=== PATIENT | male | born 1945 | race Caucasian/White ===

== ENCOUNTER 2018-07-24 20:45 | Emergency (ER) | payer MEDICARE ==
[~2018-07-24] VITALS: Ht 175.3 cm; Wt 85.0 kg
[2018-07-24] MEDS ORDERED: dextrose 50%-water 50ml dispensing syringe IV STA (20:56)
[2018-07-24] MEDS ORDERED: dexamethasone sod phosphate 10mg/ml inj IV STA (20:58)
[2018-07-24] MEDS ORDERED: dextrose 50%-water 50ml dispensing syringe IV ONE ×2 (20:58→21:00)
[2018-07-24] MEDS ORDERED: normal saline 1000ML IV soln IVB ONE (21:00)
--- NOTE | 2018-07-24 21:02 | NUR ---
Apparently he had a low glucose and became confused so his niece brought him in.
--- NOTE | 2018-07-24 21:16 | NUR ---
Pt eating food now
[2018-07-24 21:21] LABS: PARTIAL THROMBOPLASTIN TIME 28 SECONDS (22-32)
[2018-07-24 21:30] LABS: ALANINE AMINOTRANSFERASE 38 U/L (12-78); ALBUMIN/GLOBULIN RATIO 1.1 (1.1-1.5); ALKALINE PHOSPHATASE 116 IU/L (46-116); ANION GAP 12 (8-16); ASPARTATE AMINO TRANSFERASE 30 U/L (10-37); BILIRUBIN,TOTAL 0.4 MG/DL (0.1-1.0); BLOOD UREA NITROGEN 29 MG/DL (7-18); BUN/CREATININE RATIO 27.4 (5.4-32.0); CALCIUM 9.6 MG/DL (8.5-10.1); CHLORIDE 103 MMOL/L (99-107); CREATININE 1.06 MG/DL (0.60-1.10); POTASSIUM 3.4 MMOL/L (3.5-5.1); SODIUM 140 MMOL/L (135-145); TOTAL CARBON DIOXIDE 25.5 MMOL/L (24-32); TOTAL PROTEIN 7.8 G/DL (6.4-8.2); eGFR 69 ML/MIN
[2018-07-24 21:49] LABS: BASOPHILS % (AUTO) 0.3 % (0-1); EOSINOPHILS # (AUTO) 0.4 X10'3 (0-0.9); EOSINOPHILS % (AUTO) 3.8 % (0-6); HEMATOCRIT 45.7 % (42.0-52.0); HEMOGLOBIN 14.8 g/dl (14.0-17.9); LYMPHOCYTES # (AUTO) 5.3 X10'3 (1.1-4.8); LYMPHOCYTES % (AUTO) 47.4 % (21-51); MEAN CORPUSCULAR HGB CONC 32.3 g/dL (33.0-36.5); MEAN CORPUSCULAR VOLUME 98.9 FL (78-98); MEAN PLATELET VOLUME 10.3 FL (7.4-10.4); MONOCYTES # (AUTO) 1.6 X10'3 (0-0.9); MONOCYTES % (AUTO) 14.2 % (2-12); NEUTROPHILS # (AUTO) 3.9 X10'3 (1.8-7.7); NEUTROPHILS % (AUTO) 34.3 % (42-75); PLATELET COUNT 330 X10'3 (140-440); RED BLOOD COUNT 4.62 X10'6 (4.70-6.10); RED CELL DISTRIBUTION WIDTH 12.8 % (11.5-14.5); WHITE BLOOD COUNT 11.2 X10'3 (4.5-11.0)
[2018-07-24 21:53] LABS: GLUCOSE 36 MG/DL (70-104)
--- NOTE | 2018-07-24 22:02 | NUR ---
wanted me to give the patient orange juice, so I did and the patient refuses it. He says "It'll shoot my sugar way up." He is very argumentative.
--- NOTE | 2018-07-24 22:08 | NUR ---
glucose 42 he's drinking his orange juice now.
--- NOTE | 2018-07-24 22:11 | NUR ---
He can't believe his sugar dropped. He said he does remember meatloaf for dinner. I said that I didn't know, but we are working on getting his sugar up so he can go home. He smiled. He is still eating. He drank a whole juice box.
--- NOTE | 2018-07-24 22:52 | NUR ---
IV to RAC infiltrated. Another one started LAC. IV D50 adm into LAC per Dr Olivarez order for continued low blood sugar.
--- NOTE | 2018-07-24 23:24 | NUR ---
gave him a cranberry box with 13 g of sugar in it and added 5 packets of sugar to it and he drank it.
[2018-07-24 23:43] VITALS: BP 148/77
== END 2018-07-24 23:44 | disposition home or self-care (01) ==
LOC: ER 20:45
DX: E11.649 Type 2 diabetes mellitus with hypoglycemia without coma (principal); R41.0 Disorientation, unspecified
CPT/HCPCS: 36415; 80053; 82948; 85025; 85610; 85730; 93005; 96361; 96374; 96375; 96376; 99284; J1100; J7030

== ENCOUNTER 2024-11-19 14:27 | Outpatient (CLI) | payer MEDICARE, OTHER ==
[~2024-11-19 14:27] MED LIST: ASCO500C18 PO; HYDR12.5 PO; MULT-933 PO; NPH,100V2 SQ
--- NOTE | 2024-11-22 04:25 | RADIOLOGY REPORT ---
CLINICAL INDICATION: PRIMARY OSTEOARTHITIS TECHNIQUE: Noncontrast CT of the left shoulder was performed. Sagittal and coronal reformatted images are provided. Images performed for preoperative planning. COMPARISON: None CT Dose: CTDI volume is 15.4 mGy. Dose-length product is 383.7 mGy*cm FINDINGS: No fracture or dislocation. Glenohumeral joint space narrowing and osteophyte formation. T he acromioclavicular joint space is narrowed. Left lower lobe atelectasis. IMPRESSION: 1. Left glenohumeral osteoarthritis. All CT scans at this medical facility are performed using dose modulation techniques as appropriate t o a performed exam including the following: Automated exposure control was utilized; adjustment of th e MA and/or KV according to patient size; and use of iterative reconstruction technique.
== END 2024-11-19 23:59 | disposition home or self-care (01) ==
LOC: RAD 14:27
PROVIDERS: ATTEND Orthopaedic Surgery
DX: M19.012 Primary osteoarthritis, left shoulder (principal); J98.11 Atelectasis
CPT/HCPCS: 73200